=== PATIENT | female | born 1995 | race Hispanic/Latino ===

== ENCOUNTER 2021-04-04 20:09 | Day surgery (SDC) | payer OTHER ==
[2021-04-04 20:33] VITALS: BMI 36.6
[2021-04-04] MEDS ORDERED: hydrALAZINE 20 MG/ML VIAL SLOW IVP PRN (21:11)
[2021-04-04] MEDS ORDERED: Acetaminophen 325 MG TAB PO PRN (21:14)
[2021-04-04] MEDS ORDERED: Lactated Ringer's 1,000 ML IV SCH (21:15)
[2021-04-04] MEDS ORDERED: Ondansetron PF 4 MG/2 ML Vial IVP PRN (21:15)
[2021-04-04] MEDS ORDERED: Acetaminophen 325 MG TAB PO SCH (21:30)
[2021-04-04 21:49] LABS: #Monocytes 0.2 10x3/uL (0.0-1.1); #Neutrophils 4.4 10x3/uL (1.5-8.4); %Lymphocytes 13.5 % (18.0-47.0); %Monocytes 4.5 % (0.0-10.0); %Neutrophils 81.6 % (40.0-75.0); Hemoglobin 9.3 g/dL (12.0-15.5); Mean Corpuscular HGB CONC 30.1 g/dL (32.0-36.0); Mean Corpuscular Hemoglobin 22.2 pg (27.0-33.0); Mean Corpuscular Volume 73.7 fl (81.6-98.3); Mean Platelet Volume 10.6 fl (7.4-10.4); Platelet Count 319 10x3/uL (150-450); Red Blood Cell (RBC) Count 4.19 10x6/uL (3.90-5.03); White Blood Cell (WBC) Count 5.3 10x3/uL (3.5-10.5)
[2021-04-04 22:03] LABS: ALT (SGPT) 22 U/L (8-55); AST (SGOT) 18 U/L (5-34); Albumin 3.4 g/dL (3.5-5.0); Alkaline Phosphatase 192 U/L (40-110); Anion Gap 12 mmol/L (10-20); BUN (Urea Nitrogen) 7 mg/dL (7.0-18.7); Bilirubin, Total 0.5 mg/dL (0.2-1.2); Calc. Creatinine Clearance 203 mL/min (70-130); Calcium 8.9 mg/dL (7.8-10.44); Carbon Dioxide 18 mmol/L (22-29); Chloride 107 mmol/L (98-107); Globulin 3.9 g/dL (2.4-3.5); Glucose 97 mg/dL (70-105); Potassium 3.8 mmol/L (3.5-5.1); Protein, Total 7.3 g/dL (6.0-8.3); Sodium 133 mmol/L (136-145)
[2021-04-04 23:38] LABS: SARS-CoV-2 NAA Rapid Test Not Detected (NotDetected)
== END 2021-04-04 23:40 | disposition home or self-care (01) ==
LOC: CSHLD/OP 20:09
PROVIDERS: ATTEND Family Medicine
DX: O99.891 Other specified diseases and conditions complicating pregnancy (principal); O99.513 Diseases of the respiratory system complicating pregnancy, third trimester; O99.013 Anemia complicating pregnancy, third trimester; O99.283 Endocrine, nutritional and metabolic diseases complicating pregnancy, third trimester; R11.2 Nausea with vomiting, unspecified; R19.7 Diarrhea, unspecified; Q25.6 Stenosis of pulmonary artery; J45.909 Unspecified asthma, uncomplicated; E06.3 Autoimmune thyroiditis; E86.0 Dehydration; E87.1 Hypo-osmolality and hyponatremia; Z3A.34 34 weeks gestation of pregnancy; Z20.822 Contact with and (suspected) exposure to COVID-19; Z79.899 Other long term (current) drug therapy
CPT/HCPCS: 0240U; 80053; 85025

== ENCOUNTER 2021-04-17 13:47 | Day surgery (SDC) | payer OTHER ==
[2021-04-17] MEDS ORDERED: Calcium Gluc 4.6 MEQ/10 ML (100 MG/ML) SLOW IVP PRN (14:08)
[2021-04-17] MEDS ORDERED: Promethazine HCl 25 MG/ML VIAL IM PRN (14:12)
[2021-04-17] MEDS ORDERED: hydrALAZINE 20 MG/ML VIAL SLOW IVP PRN (14:12)
[2021-04-17] MEDS ORDERED: Ondansetron PF 4 MG/2 ML Vial IVP PRN (14:12)
[2021-04-17 14:16] VITALS: BMI 36.8
[2021-04-17 16:24] LABS: Hemoglobin 8.9 g/dL (12.0-15.5); Mean Corpuscular HGB CONC 30.2 g/dL (32.0-36.0); Mean Platelet Volume 10.8 fl (7.4-10.4); Platelet Count 311 10x3/uL (150-450); RBC Distribution Width 16.4 % (11.5-14.5); Red Blood Cell (RBC) Count 4.04 10x6/uL (3.90-5.03); White Blood Cell (WBC) Count 8.1 10x3/uL (3.5-10.5)
[2021-04-17 16:41] LABS: ALT (SGPT) 20 U/L (8-55); AST (SGOT) 16 U/L (5-34); Albumin 3.3 g/dL (3.5-5.0); Alkaline Phosphatase 205 U/L (40-110); Anion Gap 13 mmol/L (10-20); BUN (Urea Nitrogen) 8 mg/dL (7.0-18.7); Bilirubin, Total 0.3 mg/dL (0.2-1.2); Calc. Creatinine Clearance 226 mL/min (70-130); Calcium 8.8 mg/dL (7.8-10.44); Carbon Dioxide 19 mmol/L (22-29); Chloride 107 mmol/L (98-107); Globulin 3.7 g/dL (2.4-3.5); Glucose 81 mg/dL (70-105); Potassium 3.7 mmol/L (3.5-5.1); Sodium 135 mmol/L (136-145)
[2021-04-17 16:50] LABS: Creatinine, Urine 113.52 mg/dL (47-110)
[2021-04-17 17:01] LABS: Syphilis Antibody Nonreactive (Nonreactive); Syphilis Antibody Index 0.06 S/CO (<1.00 Non-Reactive)
[2021-04-17 17:02] LABS: Hep B Surf Ag Non-Reactive S/CO (NonReactive)
[2021-04-17 17:08] LABS: HBSAg Index 0.18 S/CO (0-0.99)
== END 2021-04-17 19:29 | disposition home or self-care (01) ==
LOC: CSHLD/OP 13:47
PROVIDERS: ATTEND Obstetrics & Gynecology
DX: O99.891 Other specified diseases and conditions complicating pregnancy (principal); R03.0 Elevated blood-pressure reading, without diagnosis of hypertension; Q25.6 Stenosis of pulmonary artery; O99.283 Endocrine, nutritional and metabolic diseases complicating pregnancy, third trimester; E06.3 Autoimmune thyroiditis; O99.513 Diseases of the respiratory system complicating pregnancy, third trimester; J45.20 Mild intermittent asthma, uncomplicated; O99.013 Anemia complicating pregnancy, third trimester; D50.9 Iron deficiency anemia, unspecified; Z3A.36 36 weeks gestation of pregnancy
CPT/HCPCS: 76819; 80053; 81003; 82570; 84156; 84443; 85027; 86780; 86850; 86900; 86901; 87340; 93005; 93010; 93306

== ENCOUNTER 2021-04-22 07:47 | Inpatient (IN) | payer OTHER ==
[2021-04-22] MEDS ORDERED: Lidocaine 2% PF 5 ML VIAL ONE (08:00)
[2021-04-22] MEDS ORDERED: ePHEDrine Sulfate 50 MG/10 ML VIAL ONE (08:00)
[2021-04-22] MEDS ORDERED: Acetaminophen 500 MG TAB PO SCH (08:30)
[2021-04-22] MEDS: Lactated Ringer's 1,000 ML IV SCH ×3 (08:41→11:00)
[2021-04-22] MEDS ORDERED: Iron Sucrose Complex 500 MG in Sodium Chloride 0.9% 250 ML 250 ML IVPB SCH (09:00)
[2021-04-22 09:25] VITALS: BMI 36.8
[2021-04-22] MEDS ORDERED: Ondansetron PF 4 MG/2 ML Vial IVP PRN (16:39)
[2021-04-22] MEDS ORDERED: hydrALAZINE 20 MG/ML VIAL SLOW IVP PRN (16:39)
[2021-04-22] MEDS ORDERED: Misoprostol 200 MCG TAB PR PRN (16:39)
[2021-04-22] MEDS ORDERED: Ibuprofen 800 MG TAB PO PRN (16:39)
[2021-04-22] MEDS ORDERED: Promethazine HCl 25 MG/ML VIAL IM PRN (16:39)
[2021-04-22] MEDS ORDERED: Docusate 100 MG CAP PO PRN (16:39)
[2021-04-22] MEDS ORDERED: Acetaminophen 500 MG TAB PO PRN (16:39)
[2021-04-22] MEDS ORDERED: Methylergonovine 0.2 MG/ML VIAL IM PRN (16:39)
[2021-04-22] MEDS ORDERED: Lidocaine 1% (PF) 30 ML VIAL SC PRN (16:39)
[2021-04-22] MEDS ORDERED: NS w/ Oxytocin 30 units 500 ML IVPB SCH (16:45)
[2021-04-22 16:53] LABS: Hemoglobin 8.5 g/dL (12.0-15.5); Mean Corpuscular HGB CONC 29.3 g/dL (32.0-36.0); Mean Corpuscular Hemoglobin 21.9 pg (27.0-33.0); Mean Corpuscular Volume 74.7 fl (81.6-98.3); Mean Platelet Volume 10.7 fl (7.4-10.4); Platelet Count 288 10x3/uL (150-450); RBC Distribution Width 17.1 % (11.5-14.5); Red Blood Cell (RBC) Count 3.88 10x6/uL (3.90-5.03); White Blood Cell (WBC) Count 4.5 10x3/uL (3.5-10.5)
[2021-04-22 17:23] LABS: Hep B Surf Ag Non-Reactive S/CO (NonReactive); Syphilis Antibody Nonreactive (Nonreactive); Syphilis Antibody Index 0.06 S/CO (<1.00 Non-Reactive)
[2021-04-22] MEDS: NS w/ Oxytocin 30 units 500 ML IV SCH (18:27)
[2021-04-22] MEDS ORDERED: Dinoprostone 10 MG Suppository VAG SCH (21:15)
[2021-04-23 17:39] LABS: SARS-CoV-2 PCR by NAA Not Detected (NotDetected)
[2021-04-23] MEDS ORDERED: Penicillin G Potassium 5 MILL.UNITS in Sodium Chloride 0.9% 100 ML IVPB SCH (18:30)
[2021-04-23] MEDS ORDERED: Fentanyl 2 mcg/Bup 0.1% Cadd 100 ML ONE (22:19)
[2021-04-23] MEDS: Penicillin G 2.5 MILL.units 2.5 MILL.UNITS in Premix Bag 1 BAG IVPB SCH (22:50)
[2021-04-24] MEDS: Penicillin G 2.5 MILL.units 2.5 MILL.UNITS in Premix Bag 1 BAG IVPB SCH ×2 (03:00→08:34)
[2021-04-24] MEDS: NS w/ Oxytocin 30 units 500 ML IV SCH (04:30)
[2021-04-24] MEDS ORDERED: Lactated Ringer's 500 ML IV PRN (05:15)
[2021-04-24] MEDS ORDERED: Fentanyl 2 mcg/Bupivacaine 0.1% Cassette 100 ML EPIDURAL SCH (05:15)
[2021-04-24] MEDS ORDERED: Ondansetron PF 4 MG/2 ML Vial IVP PRN ×2 (05:15→07:45)
[2021-04-24] MEDS ORDERED: diphenhydrAMINE 50 MG/ML VIAL IVP PRN (05:15)
[2021-04-24] MEDS ORDERED: Naloxone HCl 0.4 mg/ml Vial IVP PRN ×2 (05:15)
[2021-04-24] MEDS ORDERED: Promethazine HCl 25 MG/ML VIAL IM PRN (05:15)
[2021-04-24] MEDS ORDERED: Hydrocerin (Eucerin) Cream 120 gm Jar TOP PRN (05:15)
[2021-04-24] MEDS ORDERED: Acetaminophen 325 MG TAB PO PRN (05:15)
[2021-04-24] MEDS ORDERED: ePHEDrine Sulfate 50 MG/10 ML VIAL SLOW IVP PRN (05:15)
[2021-04-24] MEDS ORDERED: Communication Order-Pharmacy FS SCH (05:15)
[2021-04-24] MEDS ORDERED: Methylergonovine 0.2 MG/ML VIAL IM PRN (07:45)
[2021-04-24] MEDS ORDERED: diphenhydrAMINE 25 MG CAP PO PRN (07:45)
[2021-04-24] MEDS ORDERED: Boostrix 0.5 ML (Tdap) VIAL IM ONE (07:45)
[2021-04-24] MEDS ORDERED: NS w/ Oxytocin 30 units 500 ML IV SCH (07:45)
[2021-04-24] MEDS ORDERED: Bisacodyl 10 MG SUPP PR PRN (07:45)
[2021-04-24] MEDS ORDERED: hydrALAZINE 20 MG/ML VIAL SLOW IVP PRN (07:45)
[2021-04-24] MEDS ORDERED: Milk Of Magnesia 30 ML UDCUP PO PRN (07:45)
[2021-04-24] MEDS ORDERED: Preparation H Ointment 28 GM TUBE PR PRN (07:45)
[2021-04-24] MEDS ORDERED: Lanolin Ointment 7 GM TUBE TOP PRN (07:45)
[2021-04-24] MEDS ORDERED: Ibuprofen 800 MG TAB PO SCH (08:00)
[2021-04-24] MEDS: Lactated Ringer's 1,000 ML IV SCH ×3 (08:33→08:35)
[2021-04-24] MEDS: Ferrous Sulfate 325 MG TAB PO SCH ×2 (09:02→17:43)
[2021-04-24] MEDS: Docusate Calcium (SURFAK) 240 MG CAP PO SCH (09:02)
[2021-04-24] MEDS: Prenatal Vitamin 1 TAB PO SCH (09:02)
[2021-04-24] MEDS: Ibuprofen 800 MG TAB PO SCH (17:43)
[2021-04-25] MEDS: Docusate Calcium (SURFAK) 240 MG CAP PO SCH ×3 (00:17→21:55)
[2021-04-25] MEDS: Ibuprofen 800 MG TAB PO SCH ×4 (00:28→21:54)
[2021-04-25] MEDS: Ferrous Sulfate 325 MG TAB PO SCH ×2 (08:46→18:35)
[2021-04-25] MEDS: Prenatal Vitamin 1 TAB PO SCH (08:46)
[2021-04-26] MEDS: Docusate Calcium (SURFAK) 240 MG CAP PO SCH ×2 (01:44→09:04)
[2021-04-26] MEDS: Ibuprofen 800 MG TAB PO SCH ×2 (06:04→13:56)
[2021-04-26 08:31] VITALS: BP 133/66; TEMP 98
[2021-04-26] MEDS: Prenatal Vitamin 1 TAB PO SCH (09:04)
[2021-04-26] MEDS: Ferrous Sulfate 325 MG TAB PO SCH (09:04)
== END 2021-04-26 16:35 | disposition home or self-care (01) | DRG 806 ==
LOC: CSHLD/OP 07:47 → CSHLD 19:10 → CSHPP 04-24 07:35
PROVIDERS: ADMIT Family Medicine; ATTEND Family Medicine
PROC: 10E0XZZ Delivery of Products of Conception, External Approach (ICD-10-PCS; principal; 2021-04-24)
PROC: 10907ZC Drainage of Amniotic Fluid, Therapeutic from Products of Conception, Via Natural or Artificial Opening (ICD-10-PCS; 2021-04-24)
PROC: 3E0P7VZ Introduction of Hormone into Female Reproductive, Via Natural or Artificial Opening (ICD-10-PCS; 2021-04-24)
PROC: 3E033VJ Introduction of Other Hormone into Peripheral Vein, Percutaneous Approach (ICD-10-PCS; 2021-04-24)
DX: O99.02 Anemia complicating childbirth (principal); D62 Acute posthemorrhagic anemia; Z37.0 Single live birth; Z20.822 Contact with and (suspected) exposure to COVID-19; J45.30 Mild persistent asthma, uncomplicated; D50.9 Iron deficiency anemia, unspecified; O99.284 Endocrine, nutritional and metabolic diseases complicating childbirth; E06.3 Autoimmune thyroiditis; O99.52 Diseases of the respiratory system complicating childbirth; O76 Abnormality in fetal heart rate and rhythm complicating labor and delivery; Z3A.37 37 weeks gestation of pregnancy
CPT/HCPCS: 59020; 85027; 86780; 86850; 86900; 86901; 87081; 87340; 99285; J1756; J2001; J2540; J2590; J7050; U0003; U0005